=== PATIENT | male | born 1960 | race African-American/Black ===

== ENCOUNTER 2018-10-05 05:34 | Emergency (ER) | payer OTHER ==
[~2018-10-05] VITALS: Ht 172.7 cm; Wt 95.3 kg
[~2018-10-05 05:34] MED LIST: AMLODIPINE BESYL5 MG ORAL; ASPIR 8181 MG ORAL; ATENOLOL100 MG ORAL; ATORVASTATIN CA20 MG ORAL; CIPRO500 MG PO; FLAGYL500 MG ORAL; HYDROCHLOROTHIA25 MG ORAL; IRON SUPPLEMEN325 M1 PO; LISINOPRIL40 MG ORAL; METRONIDAZOLE500 MG ORAL; NORVIR100 MG ORAL; PREZISTA400 MG ORAL; TRUVADA 200 MG1 EAC1 ORAL
--- NOTE | 2018-10-05 05:47 | NUR ---
ED Nurse Note: Patient presents with complaints of dyuria x 3days, urgency and frequency with oligurial. Patient is currently providing a urine sample. Patient also reports fall 1 month ago and had left arm pain and is requesting an xray.
[2018-10-05 05:48] VITALS: BP 140/99
[2018-10-05 06:13] LABS: APPEARANCE,URINE CLEAR; BILIRUBIN, URINE NEGATIVE (NEGATIVE); COLOR,URINE BROWN; GLUCOSE, URINE (UA) NEGATIVE (NEGATIVE); KETONES,URINE NEGATIVE (NEGATIVE); LEUKOCYTE ESTERASE ,URINE 1+ (NEGATIVE); NITRITE,URINE NEGATIVE (NEGATIVE); PH,URINE 5 (4.5-8.0); PROTEIN,URINE 3+ (NEGATIVE); UROBILINOGEN,URINE 1 MG/DL (0.0-1.0)
--- NOTE | 2018-10-05 06:43 | NUR ---
ED Nurse Note: Patient tolerated PO medication well. Awaiting discharge instructions.
[2018-10-05] MEDS ORDERED: Cephalexin 500mg cap ORAL ONE (06:45)
[2018-10-05] MEDS ORDERED: CIPROFLOXACIN500 M2 ORAL (06:46)
[2018-10-05] MEDS ORDERED: PHENAZOPYRIDIN200 MG ORAL (06:46)
[2018-10-05 07:10] VITALS: BP 140/99
--- NOTE | 2018-10-05 07:10 | NUR ---
ED Nurse Note: Patient discharged.
--- NOTE | 2018-10-06 22:02 | Emergency Room Report ---
History of Present Illness General Chief Complaint: Male Urogenital Problems Source: Patient Present Illness HPI Patient 58-year-old male presented after increased dysuria and increased urinary frequency. He reports having onset of symptoms several days ago. He was noted to have some increased hesitancy. He denies any hematuria or fever. Reports having increased suprapubic pain. He was able to urinate this morning. He is urinating small amounts at a time. He denies any vomiting or flank pain. Allergies: Coded Allergies: No Known Allergies (Unverified , 02/22/15) Patient History Past Medical History: see triage record Reviewed Nursing Documentation: PMH: Agreed; PSxH: Agreed Nursing Documentation-PMH Hx Cardiac Problems: Yes - CHF Hx Hypertension: Yes Hx Pacemaker: Yes Hx COPD: Yes Hx Diabetes: Yes Hx Cancer: Yes - colon Hx Gastrointestinal Problems: No Hx Dialysis: No History Of Psychiatric Problem: No Hx Neurological Problems: No Hx Cerebrovascular Accident: No Hx Seizures: No Hx Head Trauma: Yes Review of Systems All Other Systems: negative except mentioned in HPI Physical Exam Vital Signs Date Time Temp Pulse Resp B/P (MAP) Pulse Ox O2 Delivery O2 Flow Rate FiO2 10/05/18 05:41 98.2 96 19 140/99 (113) 88 Room Air Sp02 EP Interpretation: reviewed, normal General Appearance: normal inspection, well appearing, no apparent distress, alert, GCS 15 Head: atraumatic ENT: normal ENT inspection, hearing grossly normal, normal voice Neck: normal inspection, full range of motion, supple, no bony tend Respiratory: normal inspection, lungs clear, normal breath sounds, no respiratory distress, no retraction, no wheezing Cardiovascular #1: regular rate, rhythm, no edema Gastrointestinal: normal inspection, normal bowel sounds, non tender, soft, no guarding, no hernia Genitourinary: no CVA tenderness Musculoskeletal: normal inspection, back normal, normal range of motion Neurologic: normal inspection, alert, oriented x3, responsive, grief counsellor III-XII nml as tested, speech normal Psychiatric: normal inspection, judgement/insight normal, mood/affect normal Medical Decision Making Diagnostic Impression: Primary Impression: Acute bacterial prostatitis ER Course Patient presented for increased dysuria. Differential diagnosis include was not limited to urinary tract infection, sexual transmitted infection, prostatitis among others. Patient's urinalysis showed some evidence of infection. Patient was given prescription for ciprofloxacin. Patient appears to be stable for outpatient Follow-up. Patient was advised to follow-up with his primary care physician for recheck. He was noted to be followed by infectious disease physician. He is advised to return if he has any worsening condition or other concerns. Labs Test 10/05/18 05:49 Urine Color Brown Urine Appearance Clear Urine pH 5 (4.5-8.0) Urine Specific [place] 1.020 (1.005-1.035) Urine Protein 3+ (NEGATIVE) Urine Glucose (UA) Negative (NEGATIVE) Urine Ketones Negative (NEGATIVE) Urine Blood 3+ (NEGATIVE) Urine Nitrite Negative (NEGATIVE) Urine Bilirubin Negative (NEGATIVE) Urine Urobilinogen 1 MG/DL (0.0-1.0) Urine Leukocyte Esterase 1+ (NEGATIVE) Urine RBC 5-10 /HPF (0 - 0) Urine WBC 2-4 /HPF (0 - 0) Urine Squamous Epithelial Cells Occasional /LPF Urine Bacteria Few /HPF (NONE) Urine Mucus Few /LPF (NONE/OCC) Last Vital Signs Date Time Temp Pulse Resp B/P (MAP) Pulse Ox O2 Delivery O2 Flow Rate FiO2 10/05/18 07:10 98.2 89 19 140/99 88 Room Air Status: improved Disposition: HOME, SELF-CARE Condition: Stable Scripts Phenazopyridine Hcl* (PYRIDIUM*) 200 Mg Tablet 200 MG ORAL THREE TIMES A DAY, #14 TAB 0 Refills Prov: Johnny Nagel MD 10/05/18 Ciprofloxacin Hcl* (CIPROFLOXACIN HCL*) 500 Mg Tablet 500 MG ORAL EVERY 12 HOURS, #28 TAB 0 Refills Prov: Johnny Nagel MD 10/05/18 Referrals: NON PHYSICIAN (PCP) Patient Instructions: Prostatitis, [id number] Johnny Nagel MD Oct 06, 2018 22:02
== END 2018-10-05 07:05 | disposition home or self-care (01) ==
LOC: EMR 05:58
DX: N41.0 Acute prostatitis (principal); B96.89 Other specified bacterial agents as the cause of diseases classified elsewhere; I11.0 Hypertensive heart disease with heart failure; Z95.0 Presence of cardiac pacemaker; J44.9 Chronic obstructive pulmonary disease, unspecified; E11.9 Type 2 diabetes mellitus without complications; Z85.038 Personal history of other malignant neoplasm of large intestine
CPT/HCPCS: 81003; 99283

== ENCOUNTER 2019-01-03 07:18 | Emergency (ER) | payer OTHER ==
[~2019-01-03] VITALS: Ht 172.7 cm; Wt 95.3 kg
[~2019-01-03 07:18] MED LIST changes: +CIPROFLOXACIN500 M2 ORAL; +PHENAZOPYRIDIN200 MG ORAL
[2019-01-03 07:41] VITALS: BP 145/99
--- NOTE | 2019-01-03 07:43 | NUR ---
ED Nurse Note: Patient walked in to ER from home due to Rt lateral upper thigh boil. Patient alert and oriented x4 and ambulatory. skin clean and intact. calm and cooperative. No acute distress noted at this time. 2x2cm boil noted on Rt lateral upper thigh without drainage.
--- NOTE | 2019-01-03 07:58 | NUR ---
ED Nurse Note: I&D at bedside by CHELSEA.
--- NOTE | 2019-01-03 08:17 | NUR ---
ED Nurse Note: ERMD at bedside applying dressing on the site.
--- NOTE | 2019-01-03 08:23 | Emergency Room Report ---
History of Present Illness General Chief Complaint: Skin Rash/Abscess Source: Patient, Medical Record Present Illness HPI Patient presents with complaints of fullness and infection to the right upper thigh area Patient reports that he has felt a fullness for the past 2 weeks as the discomfort became worse he presents to the ER Patient reports history of diabetes and hypertension Denies any fevers or chills denies any chest pain he reports that he squeezed the area and there was some discharge last week however It has continued to grow Allergies: Coded Allergies: No Known Allergies (Unverified , 02/22/15) Patient History Past Medical History: see triage record Reviewed Nursing Documentation: PMH: Agreed; PSxH: Agreed Nursing Documentation-PMH Hx Cardiac Problems: Yes - CHF Hx Hypertension: Yes Hx Pacemaker: Yes Hx COPD: Yes Hx Diabetes: Yes Hx Cancer: Yes - colon Hx Gastrointestinal Problems: No Hx Dialysis: No Hx Neurological Problems: No Hx Cerebrovascular Accident: No Hx Seizures: No Hx Head Trauma: Yes Review of Systems All Other Systems: negative except mentioned in HPI Physical Exam Vital Signs Date Time Temp Pulse Resp B/P (MAP) Pulse Ox O2 Delivery O2 Flow Rate FiO2 01/03/19 07:33 98.2 65 18 145/99 (114) 93 Room Air Sp02 EP Interpretation: reviewed, normal General Appearance: well appearing, no apparent distress Head: normocephalic, atraumatic Eyes: bilateral eye PERRL, bilateral eye EOMI ENT: hearing grossly normal, normal pharynx Neck: full range of motion, supple Respiratory: lungs clear, no respiratory distress, no accessory muscle use Cardiovascular #1: regular rate, rhythm Gastrointestinal: non tender, soft Musculoskeletal: normal inspection Neurologic: alert, oriented x3 Skin: other - Area of fluctuance palpable approximately distal third region of the upper aspect of the right quadricep, there is an area of central scab formation as well no other rash Lymphatic: no adenopathy Procedures Incision and Drainage Incision and Drainage : Consent: Verbal Site: Dorsal right upper leg Blade Size: 11 I & D Procedure: betadine prep, sterile drapes applied, sterile dressing applied, gauze wick placed Wound Location: lower extremity Wound's Depth, Shape: linear Irrigated w/ Saline (ccs): 200 Anesthesia: 1% Lidocaine Volume Anesthetic (ccs): 4 Sling Applied?: No Patient Tolerated: Well Complications: None Progress Area cleansed and prepped local anesthesia used, after incision there was copious amounts of pus that was released, with forceps several areas of pockets were also opened with further expression of pustules, packing is placed and area dressed appropriately Medical Decision Making Diagnostic Impression: Primary Impression: Abscess ER Course Patient has incision and drainage of the area performed There was copious amounts of pus that was released patient tolerated the procedure well Will require close outpatient follow-up Last Vital Signs Date Time Temp Pulse Resp B/P (MAP) Pulse Ox O2 Delivery O2 Flow Rate FiO2 01/03/19 07:41 98.2 80 18 145/99 93 Room Air Status: improved Disposition: HOME, SELF-CARE Condition: Improved Scripts Ibuprofen* (MOTRIN*) 600 Mg Tablet 600 MG ORAL Q8H PRN for For Pain, #20 TAB 0 Refills Prov: Lara Elliott DO 01/03/19 Trimethoprim/Sulfamethoxazole 160/800* (BACTRIM DS TABLET*) 1 Each Tablet 1 TAB ORAL Q12H, #14 TAB 0 Refills Prov: Lara Elliott DO 01/03/19 Cephalexin* (KEFLEX*) 500 Mg Capsule 500 MG ORAL EVERY 6 HOURS for 7 Days, CAP Prov: Lara Elliott DO 01/03/19 Referrals: [facility],REFERRING (PCP) Additional Instructions: Patient is provided with the discharge instructions notified to follow up with primary doctor in the next 2-3 days otherwise return to the er with any worsening symptoms. Please note that this report is being documented using DRAGON technology. This can lead to erroneous entry secondary to incorrect interpretation by the dictating instrument. Lara Elliott DO Jan 03, 2019 08:23
[2019-01-03] MEDS ORDERED: CEPHALEXIN500 MG ORAL (08:25)
[2019-01-03] MEDS ORDERED: IBUPROFEN600 MG ORAL (08:25)
[2019-01-03] MEDS ORDERED: BACTRIM DS TAB1 EAC1 ORAL (08:25)
[2019-01-03] MEDS ORDERED: Bactrim-DS 1 tab ORAL ONE (08:30)
[2019-01-03] MEDS ORDERED: Cephalexin 500mg cap ORAL ONE (08:30)
[2019-01-03 08:40] VITALS: BP 138/85
--- NOTE | 2019-01-03 08:40 | NUR ---
ED Nurse Note: Pt cleared by health care Provider for discharge after I&D. DC instructions/prescription was given with 2 different kinds of ATB PO and explained to pt and verbalized understanding of teachings. All medical deviecs such as ID band removed. Pt is AAO x4, extra gauzes and tapes provided, pt ambulatory and left with all personal belongings.
== END 2019-01-03 08:40 | disposition home or self-care (01) ==
LOC: EMR 07:35
DX: L02.415 Cutaneous abscess of right lower limb (principal); I11.0 Hypertensive heart disease with heart failure; I50.9 Heart failure, unspecified; Z95.0 Presence of cardiac pacemaker; J44.9 Chronic obstructive pulmonary disease, unspecified; E11.9 Type 2 diabetes mellitus without complications; Z85.038 Personal history of other malignant neoplasm of large intestine
CPT/HCPCS: 10060; Z7502; 99282

== ENCOUNTER 2019-04-19 19:16 | Emergency (ER) | payer OTHER ==
[~2019-04-19] VITALS: Ht 172.7 cm; Wt 95.3 kg
[~2019-04-19 19:16] MED LIST changes: +BACTRIM DS TAB1 EAC1 ORAL; +CEPHALEXIN500 MG ORAL; +IBUPROFEN600 MG ORAL
[2019-04-19 20:05] VITALS: BP 146/102
--- NOTE | 2019-04-19 20:05 | NUR ---
ED Nurse Note: Pt walked in c/o left hand fourth digit laceration. Pt stated he cut himself with a knife and blood does not stop for over 3 hrs. Pt stated he is taking aspirin. Wound seen in triage, no active bleeding currently.
--- NOTE | 2019-04-19 20:16 | NUR ---
ED Nurse Note: Xray at bedside
[2019-04-19] MEDS ORDERED: Hydrogen Peroxide 473ml Bottle TOPIC ONE (20:27)
--- NOTE | 2019-04-19 20:33 | Emergency Room Report ---
History of Present Illness General Chief Complaint: Laceration Present Illness HPI 59-year-old male with history of stroke currently on Xarelto and aspirin here complaining of finger laceration that started 3 hours ago. Patient reports that he was cutting onions that he accidentally cut a small portion of the skin of his left finger and would not stop bleeding until prior to arrival. Patient got scared. Denies tingling and numbness. Has range of motion of the affected area. Denies chest pain, shortness of breath, palpitation, headache and dizziness. Has not taken medication for symptom relief. Very superficial skin abrasion noted in the left index finger. Currently not bleeding Allergies: Coded Allergies: No Known Allergies (Unverified , 02/22/15) Patient History Past Medical History: see triage record Past Surgical History: unable to obtain Pertinent Family History: none Immunizations: UTD Reviewed Nursing Documentation: PMH: Agreed; PSxH: Agreed Nursing Documentation-PMH Hx Cardiac Problems: Yes - CHF Hx Hypertension: Yes Hx Pacemaker: Yes Hx COPD: Yes Hx Diabetes: Yes Hx Cancer: Yes - colon Hx Gastrointestinal Problems: No Hx Dialysis: No Hx Neurological Problems: No Hx Cerebrovascular Accident: No Hx Seizures: No Hx Head Trauma: Yes Review of Systems All Other Systems: negative except mentioned in HPI Physical Exam Vital Signs Date Time Temp Pulse Resp B/P (MAP) Pulse Ox O2 Delivery O2 Flow Rate FiO2 04/19/19 19:55 98.2 86 16 146/102 (117) 90 Room Air Sp02 EP Interpretation: reviewed, normal General Appearance: no apparent distress, alert, GCS 15, non-toxic Head: normocephalic, atraumatic Eyes: bilateral eye normal inspection, bilateral eye PERRL ENT: hearing grossly normal, normal pharynx, no angioedema, normal voice Neck: full range of motion, supple/symm/no masses Respiratory: chest non-tender, lungs clear, normal breath sounds, no rhonchi, no wheezing, speaking full sentences Cardiovascular #1: regular rate, rhythm, no edema, no murmur Cardiovascular #2: 2+ radial (R), 2+ radial (L) Gastrointestinal: normal bowel sounds, non tender, soft, non-distended, no guarding, no rebound Rectal: deferred Musculoskeletal: back normal Neurologic: alert, motor strength/tone normal, oriented x3, sensory intact, responsive, speech normal Psychiatric: judgement/insight normal, memory normal, mood/affect normal, no suicidal/homicidal ideation Skin: no rash, laceration - Small laceration left index finger Lymphatic: no adenopathy Procedures Laceration/Wound Repair Laceration/Wound Repair : Consent: Verbal Wound Location: upper extremity - Left index finger Wound's Depth, Shape: superficial Wound Length (cm): 0 Wound Explored: clean Irrigated w/ Saline (ccs): 10 Sterile Dressing Applied?: Yes Splint Applied?: No Sling Applied?: No Patient Tolerated: Well Complications: None Medical Decision Making PA Attestation All my diagnosis and treatment plans were reviewed ad discussed with my supervising physician Dr. Elliott Diagnostic Impression: Primary Impression: Finger laceration ER Course 59-year-old male with history of stroke currently on Xarelto and aspirin here complaining of finger laceration that started 3 hours ago. Patient reports that he was cutting onions that he accidentally cut a small portion of the skin of his left finger and would not stop bleeding until prior to arrival. Patient got scared. Denies tingling and numbness. Has range of motion of the affected area. Denies chest pain, shortness of breath, palpitation, headache and dizziness. Has not taken medication for symptom relief. Very superficial skin abrasion noted in the left index finger. Currently not bleeding Ddx considered but are not limited to : Superficial laceration, deep laceration , tendon involvement with laceration, laceration with foreign body Vital signs: are WNL, pt. is afebrile H&PE are most consistent with: Small laceration to left index finger does not require suturing or any closure is very superficial and looks more like an abrasion ORDERS: Left index finger x-ray ED INTERVENTIONS: Wound clean and closure DISCHARGE: At this time pt. is stable for d/c to home. Will provide printed patient care instructions, and any necessary prescriptions. Care plan and follow up instructions have been discussed with the patient prior to discharge. Patient to follow-up primary care provider, if worsening symptoms return to emergency room Other X-Ray Diagnostic Results Other X-Ray Diagnostic Results : X-Ray ordered: Left index finger # of Views/Limited Vs Complete: 3 View Indication: Pain PA Xray: Interpretation reviewed, by supervising MD, and agrees with findings. Interpretation: no dislocation, no soft tissue swelling, no fractures, other - No foreign body Impression: No acute disease Electronically Signed by: Velma Causey PA-C Last Vital Signs Date Time Temp Pulse Resp B/P (MAP) Pulse Ox O2 Delivery O2 Flow Rate FiO2 04/19/19 19:55 98.2 86 16 146/102 (117) 90 Room Air Disposition: HOME, SELF-CARE Condition: Stable Patient Instructions: Laceration Care, Adult Additional Instructions: Keep area dry, follow-up with your primary care provider, at this time no suturing it is very superficial and very limited to the top skin. If worsening symptoms return to the emergency room Velma Hinson Apr 19, 2019 20:33
[2019-04-19 20:41] VITALS: BP 146/102
--- NOTE | 2019-04-19 20:41 | NUR ---
ED Nurse Note: Pt cleared by ERMD for discharge. DC instructions was given and explained to pt and verbalized understanding of teachings. All medical deviecs such as ID band removed. Pt is AAO x4, ambulatory and left with all personal belongings.
--- NOTE | 2019-04-20 14:08 | Diagnostic Imaging Report ---
Indication: pain in finger. trauma Findings: 3 views of the left fourth finger were obtained. No acute fractures, malalignment, erosions, or periosteal reaction are seen. Soft tissues are unremarkable. Impression: No acute findings.
== END 2019-04-19 20:41 | disposition home or self-care (01) ==
LOC: EMR 20:41
DX: S61.211A Laceration without foreign body of left index finger without damage to nail, initial encounter (principal); I11.0 Hypertensive heart disease with heart failure; I50.9 Heart failure, unspecified; J44.9 Chronic obstructive pulmonary disease, unspecified; Z85.038 Personal history of other malignant neoplasm of large intestine; E11.9 Type 2 diabetes mellitus without complications; W26.0XXA Contact with knife, initial encounter; Y93.G1 Activity, food preparation and clean up; Y92.9 Unspecified place or not applicable; Z95.0 Presence of cardiac pacemaker
CPT/HCPCS: 73140; Z7502; 99283

== ENCOUNTER 2020-03-19 17:10 | Emergency (ER) | payer OTHER ==
[~2020-03-19] VITALS: Ht 172.7 cm; Wt 97.5 kg
[2020-03-19 18:30] VITALS: BP 132/94
[2020-03-19] MEDS ORDERED: Omnipaque-300 100ml vial INJ PRN (18:30)
--- NOTE | 2020-03-19 18:37 | Emergency Room Report ---
History of Present Illness General Chief Complaint: Diarrhea Source: Patient Present Illness HPI Disclaimer: Please note that this report is being documented using [employer]igator [employer] technology. This can lead to erroneous entry secondary to incorrect interpretation by the dictating instrument. HPI: 60-year-old male history of hypertension, hyperlipidemia, diabetes, oxygen dependent COPD, prior colon cancer status post chemotherapy and radiation, HIV presents for evaluation of diarrhea. Patient reports ongoing loose stools for 1 month. Denies fever or chills. Sometimes abdominal pain but not currently. He reports increased rectal pain and itching over the past few days. He has not yet seen his PMD. Reports viral loads are undetectable and follows regularly with HIV clinic. Patient found hypoxic in waiting room but he has a history of COPD and did not bring his oxygen tank. Immediately improved after 1 L nasal cannula was applied which is his baseline. Currently denies any chest pain, shortness of breath, palpitations, abdominal pain, nausea, vomiting. PMH: COPD, hypertension, hyperlipidemia, diabetes, HIV, colon cancer status post chemo and radiation PSH: Reviewed Allergies: Reviewed Social Hx: Reviewed Allergies: Coded Allergies: No Known Allergies (Unverified , 02/22/15) COVID-19 Screening Contact w/high risk pt: No Experienced COVID-19 symptoms?: No COVID-19 Testing performed REVERBERATORY FURNACE SUPERVISOR: No Nursing Documentation-PMH Hx Cardiac Problems: Yes - CHF Hx Hypertension: Yes Hx Pacemaker: Yes Hx COPD: Yes Hx Diabetes: Yes Hx Cancer: Yes - colon Hx Gastrointestinal Problems: No Hx Dialysis: No Hx Neurological Problems: No Hx Cerebrovascular Accident: No Hx Seizures: No Hx Head Trauma: Yes Review of Systems All Other Systems: negative except mentioned in HPI Physical Exam Vital Signs Date Time Temp Pulse Resp B/P (MAP) Pulse Ox O2 Delivery O2 Flow Rate FiO2 03/19/20 18:06 98.6 67 18 132/94 (107) 86 General: Awake and alert, no acute distress HEENT: NC/AT. EOMI. Cardiovascular: RRR. S1 and S2 normal. No murmur appreciated Resp: Normal work of breathing. No cough, wheezing or crackles appreciated Abdomen: Abdomen is soft, nondistended. Nontender. Wearing hernia belt for ventral hernia. Soft. Nontender. Rectal: No palpable masses, no hemorrhoids. Brown loose stool in vault. No melena or hematochezia. Skin: Intact. No abrasions, laceration or rash over the exposed skin MSK: Normal tone and bulk. Moving all extremities. No obvious deformity. Neuro: Awake and alert. Mentating appropriately. Medical Decision Making Diagnostic Impression: Primary Impression: UTI (urinary tract infection) Additional Impressions: Pneumonia Colitis ER Course 60-year-old male presents for evaluation of persistent diarrhea of 1 month. Differential includes is not limited to gastritis, gastroenteritis, GI bleed, hemorrhoid, abdominal mass, enteritis, diverticulitis among others. Labs show evidence of an acute urinary tract infection as well as slightly elevated creatinine with normal BUN. May be secondary to dehydration and patient was given IV fluids. Chemistry otherwise unremarkable aside from slight elevation in bilirubin. FOBT is negative. Slightly low WBC at 4.6. CT scan concerning for colitis and enteritis. Lower lobes along also seen on abdomen CT concerning for possible pneumonitis versus pneumonia. The patient states he has no changes in his respiratory status and is a his longstanding history of COPD. Will start on Levaquin to treat colitis, possible pneumonia and cystitis. Also start probiotics. Instructed patient to follow-up with his PMD as soon as possible. Instructed to return with new or worsening symptoms. Laboratory Tests Test 03/19/20 18:42 03/19/20 18:45 White Blood Count 4.6 K/UL (4.8-10.8) L Red Blood Count 4.92 M/UL (4.70-6.10) Hemoglobin 15.2 G/DL (14.2-18.0) Hematocrit 47.7 % (42.0-52.0) Mean Corpuscular Volume 97 FL (80-99) Mean Corpuscular Hemoglobin 31.0 PG (27.0-31.0) Mean Corpuscular Hemoglobin Concent 31.9 G/DL (32.0-36.0) L Red Cell Distribution Width 16.3 % (11.6-14.8) H Platelet Count 149 K/UL (150-450) L Mean Platelet Volume 7.5 FL (6.5-10.1) Neutrophils (%) (Auto) 59.2 % (45.0-75.0) Lymphocytes (%) (Auto) 22.9 % (20.0-45.0) Monocytes (%) (Auto) 12.8 % (1.0-10.0) H Eosinophils (%) (Auto) 3.9 % (0.0-3.0) H Basophils (%) (Auto) 1.2 % (0.0-2.0) Urine Color Yellow Urine Appearance Slightly cloudy Urine pH 5 (4.5-8.0) Urine Specific [place] 1.025 (1.005-1.035) Urine Protein 3+ (NEGATIVE) H Urine Glucose (UA) Negative (NEGATIVE) Urine Ketones Negative (NEGATIVE) Urine Blood 1+ (NEGATIVE) H Urine Nitrite Negative (NEGATIVE) Urine Bilirubin 1+ (NEGATIVE) H Urine Ictotest Negative (NEGATIVE) Urine Urobilinogen 1 MG/DL (0.0-1.0) H Urine Leukocyte Esterase 1+ (NEGATIVE) H Urine RBC 2-4 /HPF (0 - 0) H Urine WBC 5-10 /HPF (0 - 0) H Urine Squamous Epithelial Cells Occasional /LPF Urine Bacteria Moderate /HPF (NONE) H Urine Fine Granular Casts 2-4 /LPF (NONE) H Urine Coarse Granular Casts 0-2 /LPF (NONE) H Stool Occult Blood Negative (NEGATIVE) Sodium Level 141 MMOL/L (136-145) Potassium Level 4.0 MMOL/L (3.5-5.1) Chloride Level 108 MMOL/L (98-107) H Carbon Dioxide Level 25 MMOL/L (21-32) Anion Gap 8 mmol/L (5-15) Blood Urea Nitrogen 12 mg/dL (7-18) Creatinine 1.5 MG/DL (0.55-1.30) H Estimated Glomerular Filtration Rate 58.1 mL/min (>60) Glucose Level 95 MG/DL (74-106) Calcium Level 9.3 MG/DL (8.5-10.1) Total Bilirubin 1.7 MG/DL (0.2-1.0) H Direct Bilirubin 0.9 MG/DL (0.0-0.3) H Aspartate Amino Transferase (AST) 26 U/L (15-37) Alanine Aminotransferase (ALT) 20 U/L (12-78) Alkaline Phosphatase 137 U/L (46-116) H Total Protein 8.1 G/DL (6.4-8.2) Albumin 3.8 G/DL (3.4-5.0) Globulin 4.3 g/dL Albumin/Globulin Ratio 0.9 (1.0-2.7) L Lipase 241 U/L (73-393) CT/MRI/US Diagnostic Results CT/MRI/US Diagnostic Results : Impression IMPRESSION: Moderate segment of acute colitis on the left that is likelyinfectious or inflammatory. Question a component of distal enteritis. Airspace disease in the lung bases as above aswell as indeterminate cortical renal cystic lesions and bladder wall thickening. Radiologist: Chang Rivera DO Electronically Signed: 03/19/20 20:11 Study ready at 19:57 and initial results transmitted at 20:11 Last Vital Signs Date Time Temp Pulse Resp B/P (MAP) Pulse Ox O2 Delivery O2 Flow Rate FiO2 03/19/20 18:30 98.6 18 132/94 86 03/19/20 18:06 67 Disposition: HOME, SELF-CARE Condition: Stable Scripts Lactobacillus Rhamnosus R0011 (PROBIOTIC DIGESTIVE CARE) 1 Each Capsule 1 EACH PO DAILY, #30 CAP Prov: Uriel Summers MD 03/19/20 Levofloxacin (LEVOFLOXACIN*) 500 Mg Tablet 500 MG ORAL DAILY for 5 Days, #5 TAB Prov: Uriel Summers MD 03/19/20 Uriel Summers MD Mar 19, 2020 18:37
[2020-03-19 19:03] LABS: BASOPHILS % (AUTO) 1.2 % (0.0-2.0); EOSINOPHILS % (AUTO) 3.9 % (0.0-3.0); HEMATOCRIT 47.7 % (42.0-52.0); HEMOGLOBIN 15.2 G/DL (14.2-18.0); LYMPHOCYTES % (AUTO) 22.9 % (20.0-45.0); MEAN CORPUSCULAR VOLUME 97 FL (80-99); MONOCYTES % (AUTO) 12.8 % (1.0-10.0); NEUTROPHILS % (AUTO) 59.2 % (45.0-75.0); PLATELET COUNT 149 K/UL (150-450); RED BLOOD COUNT 4.92 M/UL (4.70-6.10); RED CELL DISTRIBUTION WIDTH 16.3 % (11.6-14.8); WHITE BLOOD COUNT 4.6 K/UL (4.8-10.8)
[2020-03-19 19:13] LABS: APPEARANCE,URINE SLIGHTLY CLOUDY; BILIRUBIN, URINE 1+ (NEGATIVE); GLUCOSE, URINE (UA) NEGATIVE (NEGATIVE); KETONES,URINE NEGATIVE (NEGATIVE); LEUKOCYTE ESTERASE ,URINE 1+ (NEGATIVE); NITRITE,URINE NEGATIVE (NEGATIVE); PH,URINE 5 (4.5-8.0); PROTEIN,URINE 3+ (NEGATIVE); UROBILINOGEN,URINE 1 MG/DL (0.0-1.0)
[2020-03-19 19:14] LABS: COLOR,URINE YELLOW
[2020-03-19 19:16] LABS: CALCIUM 9.3 MG/DL (8.5-10.1); CREATININE 1.5 MG/DL (0.55-1.30)
[2020-03-19 19:27] LABS: ALBUMIN 3.8 G/DL (3.4-5.0); ALBUMIN/GLOBULIN RATIO 0.9 (1.0-2.7); BILIRUBIN,TOTAL 1.7 MG/DL (0.2-1.0)
[2020-03-19 19:32] LABS: BILIRUBIN,DIRECT 0.9 MG/DL (0.0-0.3)
--- NOTE | 2020-03-19 20:13 | Diagnostic Imaging Report ---
EXAM: CT Abdomen and Pelvis With Intravenous Contrast CLINICAL HISTORY: ABD PAIN TECHNIQUE: Axial computed tomography images of the abdomen and pelvis with intravenous contrast. CTDI is 11.20 mGy and DLP is 579.80 mGy-cm. One or more of the following dose reduction techniques were used: automated exposure control, adjustment of the mA and/or kV according to patient size, use of iterative reconstruction technique. COMPARISON: No relevant prior studies available. FINDINGS: Lung bases: Patchy irregular foci of groundglass attenuation in both lung bases with multiple small low-attenuation nodules bilaterally. Findings are indeterminate but likely infectious/pneumonia. Follow-up to complete radiographic resolution is recommended. Mild to moderate head cardiomegaly including right atrial dilatation. Early reflux of contrast down the mildly distended IVC most consistent with elevated right heart pressures and/or right heart dysfunction. ABDOMEN: Liver: Hepatosplenomegaly. Diffuse hepatic steatosis. Indeterminate irregular low-attenuation focus posterior splenic parenchyma. Hemangioma is a consideration. Gallbladder and bile ducts: Unremarkable. No calcified stones. No ductal dilation. Pancreas: Unremarkable. No mass. No ductal dilation. Spleen: See above. Adrenals: Unremarkable. No mass. Kidneys and ureters: Multiple bilateral cortical renal cystic lesions. Many of the bilateral cystic lesions are hyperattenuating to water density. Nonemergent follow-up recommended which may begin with ultrasound. Stomach and bowel: Scattered diverticuli in the colon. Mild wall thickening distal third of the descending colon extending into at least the proximal third of the sigmoid colon. There are adjacent inflammatory changes including stranding and free fluid that extends into the pelvis. Mild wall thickening of the distal/terminal ileum raising the question of distal enteritis. Negative for obstruction or pneumatosis. No extraluminal gas/pneumoperitoneum. PELVIS: Appendix: No findings to suggest acute appendicitis. Bladder: Indeterminate bladder wall thickening with reticulation, correlate for cystitis. Reproductive: Unremarkable as visualized. ABDOMEN and PELVIS: Intraperitoneal space: See above. Bones/joints: No acute fracture. No dislocation. Soft tissues: Unremarkable. Vasculature: Unremarkable. No abdominal aortic aneurysm. Lymph nodes: Unremarkable. No enlarged lymph nodes. IMPRESSION: Moderate segment of acute colitis on the left that is likely infectious or inflammatory. Question a component of distal enteritis. Airspace disease in the lung bases as above as well as indeterminate cortical renal cystic lesions and bladder wall thickening.
[2020-03-19 20:30] VITALS: BP 136/82
[2020-03-19] MEDS ORDERED: PROBIOTIC DIGE1 EACH PO (20:58)
[2020-03-19] MEDS ORDERED: LEVOFLOXACIN500 MG ORAL (20:58)
[2020-03-19 21:30] VITALS: BP 129/80
[2020-03-19 21:45] VITALS: BP 129/80
== END 2020-03-19 21:55 | disposition home or self-care (01) ==
LOC: EMR 19:01
DX: N39.0 Urinary tract infection, site not specified (principal); J18.9 Pneumonia, unspecified organism; K52.9 Noninfective gastroenteritis and colitis, unspecified; I11.0 Hypertensive heart disease with heart failure; I50.9 Heart failure, unspecified; J44.9 Chronic obstructive pulmonary disease, unspecified; E11.9 Type 2 diabetes mellitus without complications; Z21 Asymptomatic human immunodeficiency virus [HIV] infection status; Z85.038 Personal history of other malignant neoplasm of large intestine; Z95.0 Presence of cardiac pacemaker; Z92.21 Personal history of antineoplastic chemotherapy; Z92.3 Personal history of irradiation; Z79.899 Other long term (current) drug therapy
CPT/HCPCS: 36415; 74177; 80053; 81003; 82248; 82270; 83690; 85025; 87086; 96360; Q9965; Z7502; 99284